=== PATIENT | female | born 1970 | race Caucasian/White ===

== ENCOUNTER 2016-09-01 11:45 | Emergency (ER) | payer MEDICAID ==
[2016-09-01 12:01] VITALS: RESP 18
--- NOTE | 2016-09-01 12:01 | CPEKG ---
Heart Rate: 88 RR Interval: 682 P-R Interval: 156 QRSD Interval: 86 QT Interval: 356 QTC Interval: 431 P [place]: 80 QRS [place]: 56 T Wave [place]: 40 EKG Severity - NORMAL ECG - EKG Impression: SINUS RHYTHM Electronically Signed By: Kerline Kenney 01-Sep-2016 15:41:54
[2016-09-01 13:29] VITALS: BP 95/58; PULSE 88; TEMP 97.9; O2SAT 96
--- NOTE | 2016-09-01 13:29 | EDPHY ---
H & P Time Seen by Provider: 09/01/16 12:28 HPI/ROS: CHIEF COMPLAINT: Sore throat HISTORY OF PRESENT ILLNESS: The patient is a 45-year-old female who presents emergency department with sore throat. Of note her triage states that she has intermittent substernal chest pain. However, to me, she describes persistent sore throat x2 days. She has intermittent tingling in her chest. She has had strep throat numerous times in this feels typical strep throat. She has had more pain while swallowing. She denies fevers or chills. No cough. She has had mild shortness of breath "due to the pain in my throat." She has had no nausea or vomiting. No abdominal pain. REVIEW OF SYSTEMS: My complete review of systems is negative except as mentioned in the HPI. Past Medical/Surgical History: Includes strep pharyngitis, anxiety, depression Smoking Status: Never smoked Physical Exam: Vitals noted GENERAL: Well-appearing, in no acute distress, alert. HEENT: Eyes normal to inspection. The patient's pharynx is erythematous. She has multiple lesions with white pus discharge. Uvula is midline. NECK: No thyromegaly, no lymphadenopathy, supple. RESPIRATORY: Clear to auscultation bilaterally, no rales, rhonchi or wheezing. CVS: Regular rate and rhythm, no rubs, murmurs, or gallops. ABDOMEN: Soft, nontender, nondistended, no organomegaly. BACK: Normal to inspection, no CVA tenderness. SKIN: Normal color, no rash, warm, dry. No pallor. EXTREMITIES: No pedal edema, no calf tenderness, no Homans sign or cords, no joint swelling. NEURO/PSYCH: Alert and oriented x3, normal mood and affect, normal motor sensory exam. Constitutional: Initial Vital Signs Temperature (C) 37.2 C 09/01/16 11:55 Heart Rate 84 09/01/16 11:55 Respiratory Rate 18 09/01/16 11:55 Blood Pressure 97/57 L 09/01/16 11:55 O2 Sat (%) 98 09/01/16 11:55 O2 Delivery Mode Room Air Allergies/Adverse Reactions: No Known Allergies Allergy (Unverified 09/01/16 13:33) Home Medications: Medication Instructions Recorded Penicillin V Potassium [Pen Vk] 500 mg PO TID 10 Days 09/01/16 Medical Decision Making ED Course/Re-evaluation: In the emergency department I discussed possible etiologies with the patient answered all her questions. Patient had EKG. EKG shows normal sinus rhythm, normal rate, normal axis, normal intervals. There are no ST or T-wave abnormalities. EKG is normal as interpreted by me. Based on the patient's presentation and physical exam findings I feel she has pharyngitis. She will be given penicillin. I gave her warnings prior to leaving. She will return with worsening symptoms. Differential Diagnosis: Patient has pharyngitis on exam. I doubt ACS or acute PR. I do not feel the patient is having a pneumonia, pneumothorax, aortic aneurysm or dissection. Departure - Departure Disposition: Home, Routine, Self-Care Clinical Impression: Sore throat Condition: Good Instructions: Pharyngitis (ED) Additional Instructions: Return with increasing pain, difficulty swallowing, shortness of breath or any other concerns. Referrals: [facility],. [Clinic] - 5-7 days, call for appt. Prescriptions: Penicillin V Potassium [Pen Vk] 500 mg PO TID 10 Days
[2016-09-01] MEDS ORDERED: PENICILLIN VK 500 MG TAB PO ONE (13:41)
== END 2016-09-01 14:18 | disposition home or self-care (01) ==
LOC: EEVIPCON 11:45
DX: J02.9 Acute pharyngitis, unspecified (principal)

== ENCOUNTER 2016-09-04 11:04 | Emergency (ER) | payer MEDICAID ==
[2016-09-04] MEDS ORDERED: NS 1,000 ML IV ONE (11:35)
[2016-09-04] MEDS ORDERED: DEXAMETHASONE 10 MG/ML VIAL ONE (11:39)
[2016-09-04 12:20] LABS: ANION GAP 12 mEq/L (8-16); CALCIUM 9.6 mg/dL (8.5-10.4); CARBON DIOXIDE 20 mEq/l (22-31); CHLORIDE 103 mEq/L (97-110); CREATININE 0.7 mg/dL (0.6-1.0); GLOMERULAR FILTRATION RATE > 60; GLUCOSE 109 mg/dL (70-100); SODIUM 135 mEq/L (134-144)
[2016-09-04] MEDS ORDERED: IOPAMIDOL (ISOVUE-300) 100 ML BTL ONE (12:26)
[2016-09-04] MEDS ORDERED: fentaNYL 100 MCG/2 ML INJ IVP ONE (12:46)
[2016-09-04] MEDS ORDERED: fentaNYL 100 MCG/2 ML INJ ONE (12:47)
[2016-09-04] MEDS ORDERED: CLINDAMYCIN 900 MG/DEXTROSE 50 ML IV ONE (12:55)
--- NOTE | 2016-09-04 13:20 | EDPHY ---
H & P Stated Complaint: ?l peritonsillar abcess Time Seen by Provider: 09/04/16 11:26 HPI/ROS: Chief complaint: Sore and swollen throat History of present illness: This is a 45-year-old female who presents to the emergency department for evaluation of a sore and swollen throat. Patient reports symptoms began a few days ago and have been worsening. She states it hurts to swallow. She feels diffuse swelling although worse on the left side. She denies precipitating factors. She denies alleviating factors. She denies other associated signs or symptoms including no fevers, no difficulty breathing , no cough, chest congestion, shortness of breath. She had a similar problem number of months ago and states she got a shot of penicillin and a resolved. Review of systems: A 10 point review of systems was obtained and other than described above was negative - Personal History LMP (Females 10-55): 22-28 Days Ago Current Tetanus/Diphtheria Vaccine: Yes - Medical/Surgical History Hx Asthma: No Hx Chronic Respiratory Disease: No Hx Diabetes: No Hx Cardiac Disease: No Hx Renal Disease: No Hx Cirrhosis: No Hx Alcoholism: No Other PMH: anxiety, depression - Social History Smoking Status: Never smoked - Physical Exam Exam: General Appearance: Alert, nontoxic. Eyes: Pupils equal and round no injection. ENT: Tympanic membranes, external auditory canals, external ears and surrounding soft tissue including over the mastoids are unremarkable. Nasopharynx is not injected. There is no rhinorrhea. Oropharynx is edematous. Trace exudate on the tonsils. Slight fullness to the left side compared to the right side. There is no hoarseness, no drooling, no trismus, no stridor. Respiratory: Chest is non tender, lungs are clear to auscultation. Cardiac: regular rate and rhythm Gastrointestinal: Abdomen is soft and non tender, no masses, bowel sounds normal. Musculoskeletal: Neck is supple and non tender. Extremities have full range of motion and are non tender. Skin: No rashes or lesions. Neurological: Alert and oriented x4. Strength and sensation intact and symmetrical. No meningismus. Constitutional: Initial Vital Signs Temperature (C) 37.5 C 09/04/16 11:19 Heart Rate 98 09/04/16 11:19 Respiratory Rate 18 09/04/16 11:19 Blood Pressure 98/67 L 09/04/16 11:19 O2 Sat (%) 96 09/04/16 11:19 O2 Delivery Mode Room Air Allergies/Adverse Reactions: No Known Allergies Allergy (Verified 09/04/16 11:18) Home Medications: Medication Instructions Recorded Clindamycin HCl [Clindamycin] 300 mg PO QID 10 Days 09/04/16 Hydrocodone/APAP 5/325 [[place] 1 tab PO Q6H #6 tab 09/04/16 5/325 (*)] methylPREDNISolone [Medrol Dose 1 each PO AD #1 ea 09/04/16 Julio Cesar] Medical Decision Making - Diagnostics Imaging Results: Imaging Impressions Neck CT 09/04/16 12:24 Impression: 1. Left peritonsillar abscess measuring 13 x 11 x 13 mm just lateral to the left tonsil. 2. Slight narrowing of the oropharyngeal airway. 3. Left jugulodigastric enlarged lymph node measuring 18 x 13 mm. Findings and recommendations discussed with Emergency Department physician, RAZA Delgadillo at 1258 hours on September 04, 2016. Final report concurs with initial preliminary interpretation. Imaging: Discussed imaging studies w/ auto damage estimator Radiologist ED Course/Re-evaluation: Patient is discussed with my secondary supervising physician Dr. Srinivasan Timmons. Patient presents to the emergency department for a sore and swollen throat. Ultimately she appears to have a small peritonsillar abscess. She is maintaining her airway. I have consulted with Mary Walls, physician visitor services information assistant, she has consulted with her attending physician Dr. Eagle [facility]. They do not believe the abscess will be amenable to drainage given the size of the abscess. Patient will be given 900 mg of clindamycin IV and 10 mg of Decadron IV. I do believe she is safe for discharge home. She will be discharged home on a course of clindamycin, a Medrol Dosepak and pain medicine. She is to follow up with ENT on Tuesday for recheck. Strict return precautions are given. Patient voiced understanding and agreement with plan. Differential Diagnosis: Included but not limited to pharyngitis, strep pharyngitis, tonsillitis, SHRIMP PACKER, retropharyngeal abscess, Zeus's angina, unlikely meningitis - Data Points Laboratory Results: Laboratory Results 09/04/16 11:47 09/04/16 09/04/16 11:47 11:47 Sodium 135 mEq/L mEq/L (134-144) Potassium 4.0 mEq/L mEq/L (3.5-5.2) Chloride 103 mEq/L mEq/L (97-110) Carbon Dioxide 20 mEq/l L mEq/l (22-31) Anion Gap 12 mEq/L mEq/L (8-16) BUN 10 mg/dL mg/dL (7-23) Creatinine 0.7 mg/dL mg/dL (0.6-1.0) Estimated GFR > 60 Glucose 109 mg/dL H mg/dL (70-100) Calcium 9.6 mg/dL mg/dL (8.5-10.4) Beta HCG, Qual NEGATIVE Medications Given: Discontinued Medications Fentanyl (Sublimaze) 100 mcg IVP EDNOW ONE Stop: 09/04/16 12:47 Last Admin: 09/04/16 13:14 Dose: 100 mcg Sodium Chloride (Ns) 1,000 mls @ 0 mls/hr IV ONCE ONE; Wide Open PRN Reason: Protocol Stop: 09/04/16 11:36 Last Admin: 09/04/16 11:54 Dose: 1,000 mls Clindamycin Phosphate/Dextrose (Cleocin 900 Mg (Premix)) 50 mls @ 100 mls/hr IV EDNOW ONE PRN Reason: Protocol Stop: 09/04/16 13:24 Last Admin: 09/04/16 13:42 Dose: 50 mls Ketorolac Tromethamine (Toradol) 30 mg IVP EDNOW ONE Stop: 09/04/16 13:44 Last Admin: 09/04/16 14:23 Dose: 30 mg Departure - Departure Disposition: Home, Routine, Self-Care Clinical Impression: Peritonsillar abscess Condition: Good Instructions: Peritonsillar Abscess (ED) Additional Instructions: Follow-up with [facility] on Tuesday for recheck without fail Take all antibiotics as prescribed until finished even feeling better In regards to pain control see the following: Use ibuprofen [600] mg [3] times a day for the next 2-3 days for pain In addition You have been prescribed [[place]] for pain. [[place]] contains Tylenol, do not take extra Tylenol/acetaminophen/Apap with it. It is sedating. If symptoms worsen or new symptoms develop return to the emergency room for recheck Referrals: [facility] [Other] - As per Instructions Toño Eagle MD [Medical Doctor] - As per Instructions Prescriptions: Clindamycin HCl [Clindamycin] 300 mg PO QID 10 Days Hydrocodone/APAP 5/325 [[place] 5/325 (*)] 1 tab PO Q6H #6 tab methylPREDNISolone [Medrol Dose Julio Cesar] 1 each PO AD #1 ea
[2016-09-04] MEDS ORDERED: KETOROLAC 30 MG/1 ML SDV ONE (13:24)
[2016-09-04 13:43] VITALS: PULSE 80; RESP 14; TEMP 98.4; O2SAT 94
[2016-09-04] MEDS ORDERED: KETOROLAC 30 MG/1 ML SDV IVP ONE (13:43)
[2016-09-04 14:23] VITALS: BP 130/78
== END 2016-09-04 14:21 | disposition home or self-care (01) ==
DX: J36 Peritonsillar abscess (principal)
CPT/HCPCS: 96365; J1885; J3010; Q9967